=== PATIENT | female | born 1960 | race Two or more races ===

== ENCOUNTER 2023-12-01 20:02 | Emergency (ER) | payer MEDICAID ==
[~2023-12-01] VITALS: Ht 154.9 cm; Wt 63.3 kg
[2023-12-01 20:21] VITALS: BP 164/91; PULSE 99; RESP 20; O2SAT 97
[2023-12-01 21:55] LABS: Urine Amorphous Crystal FEW /hpf (None Seen); Urine Bacteria FEW /hpf (None Seen); Urine Blood Negative /uL (Negative); Urine Clarity HAZY (Clear); Urine Color Colorless (Yellow); Urine Protein, UAD Negative (Negative); Urine Specific Gravity 1.013 (1.001-1.035); Urine Urobilinogen Normal (Negative); Urine WBC 72 /hpf (0 - 5); Urine pH 6.5 (5.0-8.0)
[2023-12-02 00:22] LABS: Chloride 95 mmol/L (98-107); Potassium 4.5 mmol/L (3.5-5.1); Sodium 126 mmol/L (136-145)
[2023-12-02 00:23] LABS: Anion Gap 6 (5-15); Calcium 9.4 mg/dL (8.7-10.4); Carbon Dioxide 25 mmol/L (20-30)
[2023-12-02 00:25] LABS: Basophils # (auto) 0 10 ^3/uL (0-0.2); Basophils % (auto) 0.4 % (0.0-2.0); Eosinophils # (auto) 0.1 10 ^3/uL (0-0.8); Eosinophils % (auto) 0.8 % (0.0-7.0); Hemoglobin 14.4 g/dL (12.2-16.2); Lymphocytes # (auto) 1.4 10 ^3/uL (0.4-5.4); Lymphocytes % (auto) 16.2 % (10.0-50.0); Mean Corpuscular Hemoglobin 31.8 pg (28.0-32.0); Mean Corpuscular Hgb Conc. 34.2 g/dL (32.0-36.0); Mean Corpuscular Volume 92.9 fL (80.0-100.0); Monocytes # (auto) 0.8 10 ^3/uL (0-1.3); Monocytes % (auto) 9.2 % (0.0-12.0); Neutrophils # (auto) 6.1 10 ^3/uL (1.6-8.6); Neutrophils % (auto) 73.4 % (37.0-80.0); Red Blood Cells 4.52 10^6/uL (4.0-5.20); Red Cell Distribution Width 13.1 % (11.8-14.3); White Blood Cell 8.4 10^3/uL (4.4-10.8)
[2023-12-02 00:28] LABS: BUN/Creatinine Ratio 11.2 (10.0-20.0); Blood Urea Nitrogen 10 mg/dL (9-23); Glucose 115 mg/dL (74-106)
[2023-12-02] MEDS ORDERED: CIPR-173 PO (01:09)
== END 2023-12-02 01:28 | disposition home or self-care (01) ==
LOC: ER 20:02
DX: N12 Tubulo-interstitial nephritis, not specified as acute or chronic (principal)
CPT/HCPCS: 36415; 80048; 81001; 83605; 85025

== ENCOUNTER 2024-02-27 18:19 | Emergency (ER) | payer MEDICAID ==
[~2024-02-27] VITALS: Ht 157.5 cm; Wt 61.5 kg
[~2024-02-27 18:19] MED LIST: CIPR-173 PO
[2024-02-27 19:38] LABS: Basophils # (auto) 0.1 10 ^3/uL (0-0.2); Basophils % (auto) 0.6 % (0.0-2.0); Eosinophils # (auto) 0.2 10 ^3/uL (0-0.8); Hematocrit 40.4 % (36.0-46.0); Hemoglobin 13.7 g/dL (12.2-16.2); Lymphocytes # (auto) 2.1 10 ^3/uL (0.4-5.4); Lymphocytes % (auto) 26.4 % (10.0-50.0); Mean Corpuscular Hemoglobin 31.4 pg (28.0-32.0); Mean Corpuscular Hgb Conc. 33.9 g/dL (32.0-36.0); Mean Corpuscular Volume 92.7 fL (80.0-100.0); Monocytes # (auto) 0.6 10 ^3/uL (0-1.3); Monocytes % (auto) 7.4 % (0.0-12.0); Neutrophils % (auto) 63.6 % (37.0-80.0); Nucleated Red Blood Cells % 0.1 %; Red Blood Cells 4.36 10^6/uL (4.0-5.20); Red Cell Distribution Width 13.4 % (11.8-14.3); White Blood Cell 7.9 10^3/uL (4.4-10.8)
[2024-02-27] MEDS: HYDROcodone-ACET 10/325MG TAB PO ONE (19:46)
[2024-02-27 19:49] VITALS: BP 168/76; PULSE 74; RESP 18; TEMP 98.1; O2SAT 98
[2024-02-27 19:53] LABS: Alanine Aminotransferase 40 U/L (7-40); Albumin 4.7 g/dL (3.2-4.8); Alkaline Phosphatase 121 U/L (46-116); Anion Gap 4 (5-15); Aspartate Aminotransferase 24 U/L (13-40); BUN/Creatinine Ratio 15.2 (10.0-20.0); Blood Urea Nitrogen 15 mg/dL (9-23); Carbon Dioxide 28 mmol/L (20-30); Chloride 103 mmol/L (98-107); Glucose 104 mg/dL (74-106); Potassium 4.5 mmol/L (3.5-5.1); Sodium 135 mmol/L (136-145)
[2024-02-27 19:54] LABS: Bilirubin, Total 0.7 mg/dL (0.2-1.0); Total Protein 7.2 g/dL (5.7-8.2)
[2024-02-27] MEDS ORDERED: ACET500T58 PO (21:18)
[2024-02-27] MEDS ORDERED: IBUP-1455 PO (21:18)
== END 2024-02-27 21:59 | disposition home or self-care (01) ==
LOC: ER 18:19
DX: R51.9 Headache, unspecified (principal); R07.89 Other chest pain; I20.9 Angina pectoris, unspecified; Z79.899 Other long term (current) drug therapy
CPT/HCPCS: 36415; 70450; 80053; 83605; 83880; 84484; 85025; 93005

== ENCOUNTER 2024-05-13 15:00 | Inpatient (IN) | payer OTHER, MEDICAID ==
[~2024-05-13] VITALS: Ht 157.5 cm; Wt 67.5 kg
[~2024-05-13 15:00] MED LIST changes: +ACET500T58 PO; +IBUP-1455 PO
[2024-05-13] MEDS: SODIUM CHLORIDE 0.9% 1,000 ML IV ONE (15:45)
[2024-05-13 16:02] LABS: Chloride 102 mmol/L (98-107); Potassium 4.2 mmol/L (3.5-5.1); Sodium 134 mmol/L (136-145)
[2024-05-13 16:03] LABS: Anion Gap 7 (5-15); Calcium 9.5 mg/dL (8.7-10.4); Carbon Dioxide 25 mmol/L (20-30)
[2024-05-13 16:08] LABS: BUN/Creatinine Ratio 15.9 (10.0-20.0); Blood Urea Nitrogen 11 mg/dL (9-23); Glucose 118 mg/dL (74-106)
[2024-05-13 16:17] LABS: Basophils # (auto) 0 10 ^3/uL (0-0.2); Basophils % (auto) 0.6 % (0.0-2.0); Eosinophils # (auto) 0.1 10 ^3/uL (0-0.8); Hematocrit 39.4 % (36.0-46.0); Hemoglobin 13.7 g/dL (12.2-16.2); Lymphocytes # (auto) 1.7 10 ^3/uL (0.4-5.4); Lymphocytes % (auto) 20.6 % (10.0-50.0); Mean Corpuscular Hgb Conc. 34.7 g/dL (32.0-36.0); Monocytes # (auto) 0.7 10 ^3/uL (0-1.3); Monocytes % (auto) 8.1 % (0.0-12.0); Neutrophils # (auto) 5.7 10 ^3/uL (1.6-8.6); Neutrophils % (auto) 69.7 % (37.0-80.0); Nucleated Red Blood Cells % 0.1 %; Red Blood Cells 4.28 10^6/uL (4.0-5.20); Red Cell Distribution Width 13.6 % (11.8-14.3); White Blood Cell 8.2 10^3/uL (4.4-10.8)
[2024-05-13 16:53] LABS: Urine Bacteria FEW /hpf (None Seen); Urine Blood Negative /uL (Negative); Urine Clarity Clear (Clear); Urine Color Colorless (Yellow); Urine Protein, UAD Negative (Negative); Urine Specific Gravity 1.008 (1.001-1.035); Urine Urobilinogen Normal (Negative); Urine WBC 2 /hpf (0 - 5)
[2024-05-13] MEDS ORDERED: NITROGLYCERIN 0.4 MG SL TAB SL PRN (17:00)
[2024-05-13] MEDS ORDERED: MORPHINE SULFATE INJ 2 MG/ml SYRG IV PRN (17:00)
[2024-05-13] MEDS ORDERED: DOCUSATE SOD 100 MG CAP PO PRN (17:00)
[2024-05-13] MEDS ORDERED: HYDROcodone-ACET 5/325MG TAB PO PRN (17:00)
[2024-05-13] MEDS: PROPRANOLOL HCL 20 MG TAB PO SCH (17:15)
[2024-05-13 17:30] VITALS: PULSE 65; RESP 18; O2SAT 98
[2024-05-13] MEDS: LOSARTAN POTASSIUM 25 MG TAB PO SCH (18:15)
[2024-05-13] MEDS: SODIUM CHLORIDE 0.9% 1,000 ML IV SCH (18:16)
[2024-05-13] MEDS: cefTRIAXone 1GM/50ML D5W 50 ML IV SCH (18:16)
[2024-05-13 19:10] VITALS: O2SAT 96
[2024-05-14] VITALS (7 sets, daily range): BP systolic 123–151; BP diastolic 59–78; PULSE 57–95; RESP 16–18; TEMP 97.8–98.3; O2SAT 93–96
[2024-05-14] MEDS: ENOXAPARIN SOD 40 MG/0.4 ML SYRINGE SC SCH (08:18)
[2024-05-14] MEDS: ACETAMINOPHEN 325 MG TAB PO PRN (16:32)
[2024-05-14] MEDS: ONDANSETRON HCL 4 MG/2 ML VIAL IV PRN (18:33)
[2024-05-14] MEDS: MORPHINE SULFATE INJ 2 MG/ml SYRG IV PRN (18:34)
== END 2024-05-14 22:50 | disposition home health service (06) | DRG 305 ==
LOC: ER 15:03 → TELE 16:54 → TELE-CENTR 23:35
PROVIDERS: ADMIT Internal Medicine; ATTEND Internal Medicine
DX: I16.0 Hypertensive urgency (principal); G45.9 Transient cerebral ischemic attack, unspecified; N39.0 Urinary tract infection, site not specified; Z87.891 Personal history of nicotine dependence
CPT/HCPCS: 36415; 70450; 71045; 80048; 81001; 82962; 83880; 85025; 85379; 87081; 97163; G0378; J2405

== ENCOUNTER 2024-07-15 21:57 | Emergency (ER) | payer OTHER, MEDICAID ==
[~2024-07-15] VITALS: Ht 154.9 cm; Wt 59.9 kg
[~2024-07-15 21:57] MED LIST changes: -IBUP-1455 PO
[2024-07-15 22:12] VITALS: BP 174/78; PULSE 70; RESP 16; TEMP 97.6; O2SAT 96
[2024-07-16] MEDS: ACETAMINOPHEN 500 MG TAB PO ONE (01:30)
== END 2024-07-16 02:45 | disposition home or self-care (01) ==
LOC: ER 21:57
DX: S13.4XXA Sprain of ligaments of cervical spine, initial encounter (principal); S09.8XXA Other specified injuries of head, initial encounter; I10 Essential (primary) hypertension; I20.9 Angina pectoris, unspecified; Z79.899 Other long term (current) drug therapy; W06.XXXA Fall from bed, initial encounter; Y93.89 Activity, other specified; Y92.89 Other specified places as the place of occurrence of the external cause; Y99.8 Other external cause status
CPT/HCPCS: 70450; 72125

== ENCOUNTER 2024-07-27 13:18 | Inpatient (IN) | payer OTHER, MEDICAID ==
[~2024-07-27] VITALS: Ht 154.9 cm; Wt 148.9 kg
[2024-07-27] VITALS (7 sets, daily range): BP systolic 121–159; BP diastolic 64–112; PULSE 59–74; RESP 10–20; TEMP 97.5–98.1; O2SAT 94–97
[2024-07-27 13:59] LABS: Basophils # (auto) 0 10 ^3/uL (0-0.2); Basophils % (auto) 0.4 % (0.0-2.0); Eosinophils # (auto) 0.1 10 ^3/uL (0-0.8); Eosinophils % (auto) 0.9 % (0.0-7.0); Hematocrit 39.7 % (36.0-46.0); Hemoglobin 13.8 g/dL (12.2-16.2); Lymphocytes # (auto) 1.7 10 ^3/uL (0.4-5.4); Lymphocytes % (auto) 25.4 % (10.0-50.0); Mean Corpuscular Hgb Conc. 34.6 g/dL (32.0-36.0); Mean Corpuscular Volume 95.3 fL (80.0-100.0); Monocytes # (auto) 0.6 10 ^3/uL (0-1.3); Monocytes % (auto) 8.6 % (0.0-12.0); Neutrophils # (auto) 4.4 10 ^3/uL (1.6-8.6); Neutrophils % (auto) 64.7 % (37.0-80.0); Platelet Count (auto) 248 10^3/uL (140-450); Red Blood Cells 4.17 10^6/uL (4.0-5.20); Red Cell Distribution Width 14.2 % (11.8-14.3); White Blood Cell 6.9 10^3/uL (4.4-10.8)
[2024-07-27 14:22] LABS: Alanine Aminotransferase 76 U/L (7-40); Albumin 4.4 g/dL (3.2-4.8); Alkaline Phosphatase 129 U/L (46-116); Anion Gap 5 (5-15); Aspartate Aminotransferase 38 U/L (13-40); BUN/Creatinine Ratio 15.5 (10.0-20.0); Blood Urea Nitrogen 11 mg/dL (9-23); Calcium 9.8 mg/dL (8.7-10.4); Carbon Dioxide 24 mmol/L (20-31); Chloride 102 mmol/L (98-107); Glucose 95 mg/dL (74-106); Potassium 4.7 mmol/L (3.5-5.1); Sodium 131 mmol/L (136-145); Total Protein 7.4 g/dL (5.7-8.2)
[2024-07-27] MEDS: NITROGLYCERIN 0.4 MG SL TAB SL ONE (14:25)
[2024-07-27] MEDS: ASPirin-EC 325mg tab PO ONE (14:25)
[2024-07-27] MEDS ORDERED: NITROGLYCERIN 0.4 MG SL TAB SL PRN (16:00)
[2024-07-27] MEDS ORDERED: MORPHINE SULFATE INJ 2 MG/ml SYRG IV PRN ×2 (16:00→16:15)
[2024-07-27 17:04] LABS: INR 0.97 (0.9-1.15); Partial Thromboplastin Time 26.2 SEC (24.5-34.5); Prothrombin Time 10.3 sec (9.3-11.8)
[2024-07-27] MEDS: diphenhdrAMINE HCL 50 MG/1 ML VL IV ONE (21:59)
[2024-07-27] MEDS: ACETAMINOPHEN 325 MG TAB PO PRN (22:00)
[2024-07-27] MEDS: FAMOTIDINE 20 MG TAB PO SCH (22:00)
[2024-07-27] MEDS: METOPROLOL TARTRATE 25 MG TAB PO SCH (22:01)
[2024-07-27] MEDS: LISINOPRIL 20 MG TAB PO SCH (22:03)
[2024-07-27] MEDS: ATORVASTATIN 20 MG TAB PO SCH (22:05)
[2024-07-28] VITALS (13 sets, daily range): BP systolic 103–121; BP diastolic 45–64; PULSE 53–76; RESP 12–20; TEMP 97.5–97.9; O2SAT 93–98
[2024-07-28 06:37] LABS: Albumin 4.1 g/dL (3.2-4.8); Bilirubin, Direct 0.2 mg/dL (<0.3)
[2024-07-28 06:38] LABS: Bilirubin, Total 0.8 mg/dL (0.2-1.0); Total Protein 6.7 g/dL (5.7-8.2)
[2024-07-28] MEDS: ASPirin-EC 81 mg tab PO SCH (09:30)
[2024-07-28] MEDS: ENOXAPARIN SOD 40 MG/0.4 ML SYRINGE SC SCH (10:00)
[2024-07-28] MEDS: SENNA 8.6 MG TAB PO SCH (11:36)
[2024-07-28] MEDS: IODIXANOL 320MG/ML 100ML BTL IV ONE (13:42)
[2024-07-28] MEDS: ANGIOMAX 250 MG VIAL IV ONE (14:13)
[2024-07-28] MEDS: HEPARIN SODIUM (PORCINE) 5000 UNITS/ML 1ML VIAL ONE (14:14)
[2024-07-28] MEDS: MIDAZOLAM HCL 2MG/2ML 2ml VIAL (1mg/ml) ONE (14:14)
[2024-07-28] MEDS: fentaNYL CITRATE 100 MCG/2 ML VL ONE (14:14)
[2024-07-28] MEDS: VERAPAMIL 2.5MG/ML INJ 2ML VIAL IV ONE (14:14)
[2024-07-28] MEDS: SODIUM CHL 0.9% 0 ML ONE (14:15)
[2024-07-28] MEDS: LIDOCAINE 2%HCL (LOCAL ANESTH.) INJ 20ML MDV ONE (14:15)
[2024-07-29 01:00] VITALS: BP 110/48; PULSE 62; RESP 19; TEMP 98; O2SAT 99
[2024-07-29 05:00] VITALS: TEMP 98
[2024-07-29 07:05] LABS: Alanine Aminotransferase 65 U/L (7-40); Alkaline Phosphatase 118 U/L (46-116); Calcium 9.7 mg/dL (8.7-10.4); Chloride 101 mmol/L (98-107)
[2024-07-29 07:06] LABS: Albumin 4.3 g/dL (3.2-4.8); Anion Gap 5 (5-15); Aspartate Aminotransferase 29 U/L (13-40); Blood Urea Nitrogen 10 mg/dL (9-23); Carbon Dioxide 25 mmol/L (20-31); Glucose 96 mg/dL (74-106); Potassium 4.6 mmol/L (3.5-5.1); Sodium 131 mmol/L (136-145)
[2024-07-29 07:07] LABS: Bilirubin, Total 1.4 mg/dL (0.2-1.0); Total Protein 7.1 g/dL (5.7-8.2)
[2024-07-29 08:00] VITALS: PULSE 62; PULSE 65; RESP 17; O2SAT 95
[2024-07-29 09:24] VITALS: BP 125/59; PULSE 62; RESP 17; TEMP 97.9; O2SAT 95
[2024-07-29 13:28] VITALS: BP 138/60; PULSE 66; RESP 17; TEMP 97.5; O2SAT 94
[2024-07-29] MEDS ORDERED: PANT40TA57 PO (14:44)
[2024-07-29] MEDS ORDERED: ATOR20TA50 PO (14:44)
[2024-07-29] MEDS ORDERED: LOS25T PO (14:44)
[2024-07-29 17:57] VITALS: BP 123/60; PULSE 63; RESP 17; TEMP 97.6; O2SAT 95
[2024-07-29] MEDS: PNEUMOCOCCAL VACC POLYS 25 MCG/0.5 ML VIAL IM ONE (18:33)
== END 2024-07-29 18:36 | disposition home or self-care (01) | DRG 391 ==
LOC: ER 13:18 → TELE 16:01 → TELE-EAST 17:35
PROVIDERS: ADMIT Hospitalist; ATTEND Hospitalist
PROC: 4A023N7 Measurement of Cardiac Sampling and Pressure, Left Heart, Percutaneous Approach (ICD-10-PCS; principal; 2024-07-28)
PROC: B211YZZ Fluoroscopy of Multiple Coronary Arteries using Other Contrast (ICD-10-PCS; 2024-07-28)
PROC: B215YZZ Fluoroscopy of Left Heart using Other Contrast (ICD-10-PCS; 2024-07-28)
DX: K21.9 Gastro-esophageal reflux disease without esophagitis (principal); E43 Unspecified severe protein-calorie malnutrition; Z68.44 Body mass index [BMI] 60.0-69.9, adult; E87.1 Hypo-osmolality and hyponatremia; I10 Essential (primary) hypertension; F32.9 Major depressive disorder, single episode, unspecified; E78.5 Hyperlipidemia, unspecified; M06.9 Rheumatoid arthritis, unspecified; F06.4 Anxiety disorder due to known physiological condition; I25.10 Atherosclerotic heart disease of native coronary artery without angina pectoris; Z86.73 Personal history of transient ischemic attack (TIA), and cerebral infarction without residual deficits; Z79.899 Other long term (current) drug therapy; I35.1 Nonrheumatic aortic (valve) insufficiency; E66.01 Morbid (severe) obesity due to excess calories
CPT/HCPCS: 36415; 71045; 76705; 80053; 80076; 84484; 85025; 85379; 85610; 85730; 93005; 93306; 93458; 99152; G0378; J2250; Q9967

== ENCOUNTER 2024-12-03 12:58 | Emergency (ER) | payer OTHER, MEDICAID ==
[~2024-12-03] VITALS: Ht 157.5 cm; Wt 65.4 kg
[~2024-12-03 12:58] MED LIST changes: -ACET500T58 PO; +ATOR20TA50 PO; -CIPR-173 PO; +LOS25T PO; +PANT40TA57 PO
--- NOTE | 2024-12-03 13:17 | ECG ---
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
--- NOTE | 2024-12-03 13:34 | ED.PDOC ---
History of Present Illness HPI Comments 64 year old female presents to the ED with a chief complaint of LT sided numbness onset today (12/03/2024) around 11:00. Patient states she is experiencing LT sided facial numbness as well as headache since 11:00. Patient experienced similar symptoms 2 days ago, resolved on its own. PMHx angina, HTN. Denies chest pain, shortness of breath, dizziness, blurry vision, nausea, vomiting, diarrhea. No other symptoms or modifying factors present at this time. Chief Complaint: Left Sided Weakness Time Seen by MD: 13:10 Primary Care Provider: UNKNOWN Reviewed Notes: Medications, Allergies Allergies: Coded Allergies: NO KNOWN ALLERGIES (Unverified , 11/26/11) Home Meds Active Scripts Pantoprazole Sodium Sesquihydr (Pantoprazole Sodium Dr) 40 Mg Tab, 40 MG PO DAILY, #30 TAB Prov:JACKIE DOSHI MD 07/29/24 Atorvastatin Calcium (ATORVASTATIN CALCIUM) 20 Mg Tab, 1 TAB PO DAILY, #30 TAB 1 Refill Prov:JACKIE DOSHI MD 07/29/24 Losartan Potassium (Losartan Potassium) 25 Mg Tab, 25 MG PO DAILY, #30 TAB 1 Refill Prov:JACKIE DOSHI MD 07/29/24 Information Source: Patient Mode of Arrival: Ambulatory Severity: Moderate Timing: Hours Duration: Since onset Prehospital treatment: None Past Medical History PAST MEDICAL HISTORY: Angina, HTN Surgical History: Denies all surgeries 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 BRUSHING MACHINE OPERATOR History Family History Family History: Unknown Social History Smoker: Non-Smoker Alcohol: Denies ETOH Use Drugs: Denies Drug Use Lives In: Home Constitutional: denies: chills, diaphoresis, fatigue, fever, malaise, sweats, weakness, others EENTM: denies: blurred vision, double vision, ear bleeding, ear discharge, ear drainage, ear pain, ear ringing, eye pain, eye redness, hearing loss, mouth pain, mouth swelling, nasal discharge, nose bleeding, nose congestion, nose pain, photophobia, tearing, throat pain, throat swelling, voice changes, others Respiratory: denies: cough, hemoptysis, orthopnea, SOB at rest, shortness of breath, SOB with excertion, stridor, wheezing, others Cardiovascular: denies: chest pain, dizzy spells, diaphoresis, Dyspnea on exertion, edema, irregular heart beat, left arm pain, lightheadedness, palpitations, PND, syncope, others Gastrointestinal: denies: abdomen distended, abdominal pain, blood streaked bowels, constipated, diarrhea, dysphagia, difficulty swallowing, hematemesis, melena, nausea, poor appetite, poor fluid intake, rectal bleeding, rectal pain, vomiting, others Genitourinary: denies: abnormal vagina bleeding, burning, dyspareunia, dysuria, flank pain, frequency, hematuria, incontinence, pain, , vagina discharge, urgency, others Neurological: reports: headache, left sided numbness; denies: dizziness, fainting, left sided weakness, numbness, paresthesia, pre-existing deficit, right sided numbness, right sided weakness, seizure, speech problems, tingling, tremors, weakness, others Musculoskeletal: denies: back pain, gout, joint pain, joint swelling, muscle pain, muscle stiffness, neck pain, others Integumetry: denies: bruises, change in color, change in hair/nails, dryness, laceration, lesions, lumps, rash, wounds, others Allergic/Immunocompromised: denies: Difficulty Healing, Frequent Infections, Hives, Itching, others Hematologic/Lymphatic: denies: anemia, blood clots, easy bleeding, easy bruising, swollen glands, others Endocrine: denies: excessive hunger, excessive sweating, excessive thirst, excessive urination, flushing, intolerance to cold, intolerance to heat, unexplained weight gain, unexplained weight loss, others Psychiatric: denies: anxiety, bipolar disorder, depression, hopeless, panic disorder, schizophrenia, sleepless, suicidal, others All Other Systems: Reviewed and Negative Physical Exam General Appearance: No Apparent Distress, Normal HEENT: Normal ENT Inspection, PERRL/EOMI, Pharynx Normal, TMs Normal, Other (Mild drooping left face but numb) Neck: Full Range of Motion, Non-Tender, Normal, Normal Inspection Respiratory: Chest Non-Tender, Lungs Clear, No Accessory Muscle Use, No Respiratory Distress, Normal Breath Sounds Cardiovascular: No Edema, No JVD, No Murmur, No Gallop, Normal Peripheral Pulses, Regular Rate/Rhythm Breast Exam: Deferred Gastrointestinal: No Organomegaly, Non Tender, No Pulsatile Mass, Normal Bowel Sounds, Soft Genitalia: Deferred Pelvic: Deferred Rectal: Deferred Extremities: No calf tenderness, Normal capillary refill, Normal inspection, Normal range of motion, Non-tender, No pedal edema Musculoskeletal : Apperance: Normal Neurologic: Alert, 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 Was a procedure done?: No EKG EKG : Pulse Rate (adult): 74 [place]: Normal Cardiac Rhythm: NSR Hypertrophy: LAE Differential Dx Considerations may include: Thomson's palsy cerebral mass electrolyte abnormalities X-Ray, Labs, Meds, VS Vital Signs Date Time Temp Pulse Resp B/P (MAP) Pulse Ox O2 Delivery O2 Flow Rate FiO2 12/03/24 13:09 74 12/03/24 13:07 97.0 82 20 152/89 (110) 96 Lab Test 12/03/24 13:07 Range/Units POC Glucose 114 H 70-106 mg/dl [place] [address] Ph: [phone] DIAGNOSTIC IMAGING Diagnostic Imaging Report : [id number] Signed PATIENT: SHARA MERRILLACCT: [id number] UNIT: [id number] : 1960 LOC: ER ROOM / BED: / AGE / SEX: 64 / F ADM STATUS: REG ER SERVICE 1306 ORDERING PHYSICIAN: DINESH DOBSON MD PROCEDURE(s): HWOCT - HEAD WITHOUT CONTRAST REASON: LEFT SIDED NUMBNESS ORDER NUMBER(s): [id number], ACCESSION NUMBER(s): [id number] EXAM: CT HEAD WITHOUT CONTRAST INDICATION: LEFT SIDED NUMBNESS TECHNIQUE: CT of the head without intravenous contrast. Radiation Dose : 1. Head: CT Dose: CTDI volume is 48.66 mGy. Dose-length product is 780.26 mGy*cm The dose indicators for CT are the volume Computed Tomography (CT) Dose Index (CTDIvol) and the Dose Length Product (DLP), and are measured in units of mGy and mGy-cm, respectively. These indicators are not patient dose, but values generated from the CT scanner acquisition factors. The report includes radiation exposure data for exposures received during this examination. COMPARISON: CT HEAD WITHOUT CONTRAST on DOS: 07/16/24, CT HEAD WITHOUT CONTRAST on DOS: 05/13/24, CT HEAD WITHOUT CONTRAST on DOS: 02/27/24 FINDINGS: There is no evidence of acute intracranial hemorrhage, extra-axial collection, mass effect, midline shift, herniation or hydrocephalus. The ventricles, sulci and cisterns are age appropriate. The muniz-white differentiation is intact. Patchy periventricular and subcortical white matter hypoattenuation is nonspecific but may be related to small vessel ischemic disease. The visualized paranasal sinuses and mastoid air cells are clear. The surrounding soft tissues and osseous structures are unremarkable. IMPRESSION: 1. No acute intracranial abnormality. Radiation optimization: All CT scans at this facility use at least one of these dose optimization techniques: automated exposure control mA and/or kV adjustment per patient size (includes targeted exams where dose is matched to clinical indication) or iterative reconstruction. ATED BY: LEWIS SUTTON MD DICTATED DATE/TIME: 12/03/24 1344 SIGNED BY: LEWIS SUTTON MD SIGNED DATE/TIME: 12/03/24 1344 CC: X-Ray, Labs, Meds, VS Comment Course in the emergency department eventful patient came in complaining of left- sided numbness mostly the face nothing else Blood pressure 152/99 blood sugar 114 patient has history of hypertension anxiety EKG shows normal sinus rhythm CT head is normal Patient discharged home to follow up with her PCP Time of 1ST Reevaluation: 13:40 Reevaluation 1ST: Unchanged Patient Education/Counseling: Diagnosis, Treatment, Prognosis Family Education/Counseling: No Family Present Additional Information - The following tests were ordered, and results were reviewed by me: EKG, CT HEAD WITHOUT CONTRAST - I reviewed and agreed with the following test results read by other provider: CT HEAD WITHOUT CONTRAST - I discussed treatments and results with medical personnel and: patient Departure 1 Departure Time of Disposition: 14:43 Impression: Primary Impression: Thomson's palsy Additional Impression: Hypertension Qualified Codes: I10 - Essential (primary) hypertension Disposition: 01 HOME / SELF CARE / HOMELESS Condition: Fair Additional Instructions: You need to follow up with your PCP He had Thomson's palsy could stay for 3-6 weeks e-Prescriptions Acyclovir (ZOVIRAX TABLET) 400 Mg Tb 2 TAB PO TID for 10 Days, #60 TAB Prov: DINESH DOBSON MD 12/03/24 Dexamethasone (Decadron) 4 Mg Tb 1 TAB PO BID PRN for 5 Days, #10 TAB Prov: DINESH DOBSON MD 12/03/24 Discharged With: Self Critical Care Note Critical Care Time?: No Stability Stability form required: No Heart Score Heart Score: Heart Score Response (Comments) Value History N/A 0 EKG N/A 0 Age >65 2 Risk Factors 1 or 2 risk factors 1 Troponin N/A 0 Total 3 I personally scribed for DINESH DOBSON MD ([email or web address]) on 12/03/24 at 13:34. Electronically submitted by Mariela Cervantes ([email or web address]). I personally scribed for DINESH DOBSON MD ([email or web address]) on 12/03/24 at 14:07. Electronically submitted by Mariela Cervantes ([email or web address]). DINESH DOBSON MD Dec 03, 2024 13:34
--- NOTE | 2024-12-03 13:46 | DVH ---
EXAM: CT HEAD WITHOUT CONTRAST INDICATION: LEFT SIDED NUMBNESS TECHNIQUE: CT of the head without intravenous contrast. Radiation Dose : 1. Head: CT Dose: CTDI volume is 48.66 mGy. Dose-length product is 780.26 mGy*cm The dose indicators for CT are the volume Computed Tomography (CT) Dose Index (CTDIvol) and the Dose Length Product (DLP), and are measured in units of mGy and mGy-cm, respectively. These indicators are not patient dose, but values generated from the CT scanner acquisition factors. The report includes radiation exposure data for exposures received during this examination. COMPARISON: CT HEAD WITHOUT CONTRAST on DOS: 07/16/24, CT HEAD WITHOUT CONTRAST on DOS: 05/13/24, CT HEA D WITHOUT CONTRAST on DOS: 02/27/24 FINDINGS: There is no evidence of acute intracranial hemorrhage, extra-axial collection, mass effect, midline s hift, herniation or hydrocephalus. The ventricles, sulci and cisterns are age appropriate. The muniz-white differentiation is intact. Patchy periventricular and subcortical white matter hypoattenuation is nonspecific but may be related to small vessel ischemic disease. The visualized paranasal sinuses and mastoid air cells are clear. The surrounding soft tissues and osseous structures are unremarkable. IMPRESSION: 1. No acute intracranial abnormality. Radiation optimization: All CT scans at this facility use at least one of these dose optimization brenna hniques: automated exposure control mA and/or kV adjustment per patient size (includes targeted exam s where dose is matched to clinical indication) or iterative reconstruction.
[2024-12-03] MEDS ORDERED: ACYC400T16 PO (14:46)
[2024-12-03] MEDS ORDERED: DEX4T PO (14:46)
[2024-12-03 15:04] VITALS: BP 155/79; PULSE 63; RESP 16; O2SAT 96
== END 2024-12-03 15:49 | disposition home or self-care (01) ==
LOC: ER 12:58
DX: G51.0 Bell's palsy (principal); I10 Essential (primary) hypertension; I20.9 Angina pectoris, unspecified; Z79.899 Other long term (current) drug therapy
CPT/HCPCS: 70450; 82962; 93005

== ENCOUNTER 2025-06-19 06:13 | Day surgery (SDC) | payer OTHER, MEDICAID ==
[2025-06-19] VITALS (9 sets, daily range): BP systolic 104–172; BP diastolic 45–76; PULSE 54–65; RESP 12–18; TEMP 98.1; O2SAT 97–99
[~2025-06-19] VITALS: Ht 157.5 cm; Wt 59.0 kg
[~2025-06-19 06:13] MED LIST changes: +CLOP75TA70 PO; +FLUO-125 PO; +HYDR-4902 PO; +IBUP-1456 PO; -LOS25T PO; +LOSA-534 PO; +NAP500T GT; +SERT-289 PO
[2025-06-19] MEDS ORDERED: LIDOCAINE VISCOUS 2% 15ML UD MT ONE (08:30)
[2025-06-19] MEDS ORDERED: fentaNYL CITRATE 100 MCG/2 ML VL IV ONE (08:30)
[2025-06-19] MEDS ORDERED: MIDAZOLAM HCL 2MG/2ML 2ml VIAL (1mg/ml) IV ONE (08:30)
--- NOTE | 2025-06-19 10:12 | DVHOP2 ---
Operative Report Operative Report CARDIAC TALENT ADVISOR PROCEDURE REPORT [place], [place] Date of Service: Business Development Officer: Kevan Aguilar MD PROCEDURES PERFORMED: trans esophageal echocardiogram, conscious sedation <15 mins, doppler assesment complete LEI, DC cardioversion PREOPERATIVE DIAGNOSES: PFO POSTOP DIAGNOSIS: small PFO DESCRIPTION OF PROCEDURE: The patient or appropriate family signed informed consent understanding the risks, benefits and alternatives of the procedure, they wished to proceed. The patient was brought to the cardiac clinical lab assistant in n.p.o. state. the patient was given 15 ml of oral viscous lidocaine. the patient was placed in a left lateral decubitus position with bite block in mouth. NExt conscious sedation was administered per clinical lab assistant protocol with __1 mg of versed and __50_ mcg of fentanyl. Next a LEI probe was advanced to the mid esophagus with ease and multiple planar images obtained. At the completion of the procedure , probe was removed and there were no immediate complications. FINDINGS: Left Ventricle: Normal LV size and function, LVEF estimated at 60% Right Ventricle: NOrmal RV size and function Left atrium: mild enlarged Right atrium: normal Left atrial appendage: no thrombus noted, Aortic valve: trileaflet valve, no severe or AI, trace AI Mitral Valve: structurally normal, mild mitral regurg, no MS Tricuspid Valve: mild tricuspid regurgitaiton, no TS Pulmonic Valve: strucutrally normal, no severe PIor PS Interatrial septum: negative color flow but mildly positive bubble study suggestive of a small PFO Ascending aorta: no severe plaquing asa daily KEVAN AGUILAR MD Jun 19, 2025 10:12
--- NOTE | 2025-06-19 14:04 | ECG ---
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
== END 2025-06-19 12:09 | disposition home or self-care (01) ==
LOC: CATH 06:13
PROVIDERS: ATTEND Internal Medicine
DX: I08.1 Rheumatic disorders of both mitral and tricuspid valves (principal); R93.1 Abnormal findings on diagnostic imaging of heart and coronary circulation; Q21.12 Patent foramen ovale
CPT/HCPCS: 93005; 93312; J2250; J3010; 99152